=== PATIENT | female | born 1980 | race Caucasian/White ===

== ENCOUNTER 2017-08-21 13:14 | Emergency (ER) | payer BC ==
[2017-08-21 14:55] VITALS: BP 120/93
--- NOTE | 2017-08-21 15:16 | UC ---
Respiratory Complaint HPI - HPI Summary HPI Summary: Patient presents to the with CC of fever and cough x 2 days. She has not taken anything for relief stating she does not like to take medications. She is currently . 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 She denies N/V/C/D. Denies travel. Cough is with a discoloration of production , but denies chest pain. Denies SOB or other symptoms. Body aches+. She has not had a flu shot this year. - History of Current Complaint Hx Obtained From: Patient Hx Last Menstrual Period: 07/21/17 ?: No Onset/Duration: Sudden Onset Timing: Constant Severity Initially: Moderate Severity Currently: Moderate Pain Intensity: 4 Pain Scale Used: 0-10 Numeric Character: Cough: Productive Aggravating Factors: Deep Breaths, Recumbent Position Alleviating Factors: Upright Position Associated Signs And Symptoms: Positive: URI, Nasal Congestion. Negative: Dyspnea, Calf Pain, Calf Swelling - Risk Factors Pulmonary Embolism Risk Factors: Negative Cardiac Risk Factors: Negative Pseudomonas Risk Factors: Negative Tuberculosis Risk Factors: Negative <Rocío Roque - Last Filed: 08/21/17 15:34> <Wendy Jain - Last Filed: 08/22/17 20:23> - History of Current Complaint Chief Complaint: UCGeneralIllness Stated Complaint: FEVER,COUGH Time Seen by Provider: 08/21/17 14:52 - Allergies/Home Medications Allergies/Adverse Reactions: Allergies Allergy/AdvReac Type Severity Reaction Status Date / Time Penicillins Allergy Intermediate Hives Verified 08/21/17 14:56 PMH/Surg Hx/FS Hx/Imm Hx Previously Healthy: Yes - Surgical History Surgical History: Yes Surgery Procedure, Year, and Place: TONSILLECTOMY. C-SECT 2007,2009, 2014 - Family History Known Family History: Positive: Hypertension - Social History Occupation: Employed Full-time Lives: With Family Alcohol Use: None Substance Use Type: None Smoking Status (MU): Never Smoked Tobacco <Rocío Roque - Last Filed: 08/21/17 15:34> Review of Systems Constitutional: Fever, Fatigue Skin: Negative ENT: Sinus Congestion, Sinus Pain/Tenderness Respiratory: Cough Cardiovascular: Negative Motor: Negative Neurovascular: Negative Musculoskeletal: Myalgia Neurological: Headache Psychological: Negative Is Patient Immunocompromised?: No All Other Systems Reviewed And Are Negative: Yes <Mya,Rocío Millan - Last Filed: 08/21/17 15:34> Physical Exam Triage Information Reviewed: Yes Appearance: Well-Appearing, Well-Nourished Vital Signs: Initial Vital Signs Temp 101.3 F 08/21/17 14:49 Pulse 122 08/21/17 14:49 Resp 16 08/21/17 14:49 BP 120/93 08/21/17 14:49 Pulse Ox 97 08/21/17 14:49 Vital Signs Reviewed: Yes Eye Exam: Normal Eyes: Positive: Conjunctiva Clear Neck exam: Normal Neck: Positive: Supple, No Lymphadenopathy Respiratory Exam: Normal Respiratory: Positive: Chest non-tender Cardiovascular Exam: Normal Cardiovascular: Positive: RRR Musculoskeletal Exam: Normal Musculoskeletal: Positive: Strength Intact Psychological: Positive: Normal Response To Family, Age Appropriate Behavior Skin Exam: Normal <Mya,Rocío B - Last Filed: 08/21/17 15:34> Vital Signs: Initial Vital Signs Temp 101.3 F 08/21/17 14:49 Pulse 122 08/21/17 14:49 Resp 16 08/21/17 14:49 BP 120/93 08/21/17 14:49 Pulse Ox 97 08/21/17 14:49 <Wendy Jain - Last Filed: 08/22/17 20:23> Diagnostic Evaluation - Laboratory O2 Sat by Pulse Oximetry: 97 <Mya,Rocío B - Last Filed: 08/21/17 15:34> Respiratory Course/Dx - Course Course Of Treatment: Patient evaluated for cough and fever. Fever highest at 102 yesterday. She has not taken anything for relief. She denies other symptoms. She is given mucinex for relief of cough. Lungs CTA. TM's without erythema. Pharynx normal without exudate. Currently at 101.3 and tachy, but continues to refuse tylenol or ibuprofen. She is drinking enough fluids. She appears well and is not diaphoretic. She is given 2 days off work with supportive care. She is encouraged to return for any worsening symptoms. This may be a viral syndrome. Since onset x 3 days - deferred flu at this time since treatment is not encouraged after 48 hours. She understands plan and will return if symptoms worsen. - Differential Dx/Diagnosis Differential Diagnosis/HQI/PQRI: Bronchitis, Sinusitis, Other - influenza, febrile illness, viral illness Provider Diagnoses: Viral syndrome <Rocío Roque - Last Filed: 08/21/17 15:34> Discharge <Rocío Roque - Last Filed: 08/21/17 15:34> <Wendy Jain - Last Filed: 08/22/17 20:23> - Discharge Plan Condition: Stable Disposition: HOME Prescriptions: Guaifenesin [Mucinex Maximum Strength] 1,200 mg PO DAILY #12 tab Patient Education Materials: Viral Syndrome (ED) Forms: *Work Release Referrals: No Primary Care Phys,NOPCP [Primary Care Provider] - Additional Instructions: Follow up with your PCP Take mucinex once daily Return to UC if symptoms persist Humidifier in the home will help. Tylenol for discomfort. Take all medications as directed. Symptoms should resolve in 1-3 weeks. If symptoms become worse, please come back to UC or go to the ED. Honey and lemon hot tea Rest plenty of fluids. Attestation Statement User Type: Provider - I was available for consult. This patient was seen by the [facility]. The patient was not presented to, seen by, or examined by me. -Salbador <Wendy Jain - Last Filed: 08/22/17 20:23>
== END 2017-08-21 15:18 | disposition home or self-care (01) ==
LOC: UCCORT 13:14
DX: B34.9 Viral infection, unspecified (principal)
CPT/HCPCS: 99212; G0463

== ENCOUNTER 2017-10-15 08:20 | Emergency (ER) | payer BC ==
[2017-10-15 08:34] VITALS: BP 137/85
[2017-10-15] MEDS ORDERED: Ibuprofen TAB* 600 MG PO ONE (08:57)
--- NOTE | 2017-10-15 08:59 | UC ---
Truncal Trauma HPI - HPI Summary HPI Summary: 36 YO FEMALE WAS CHOKING ON A BAGEL THIS AM COUGHED AND FELT A POP RIGHT SIDE OF CHEST NO SOB HURTS TO MOVE/BEND/TAKE A DEEP BREATH - History Of Current Complaint Chief Complaint: UCChestPain Stated Complaint: RIGHT SIDE PAIN Time Seen by Provider: 10/15/17 08:36 Hx Obtained From: Patient Hx Last Menstrual Period: 10/13/17 Onset/Duration: Sudden Onset, Lasting Hours Onset Of Pain: Immediate Severity Initially: Severe Severity Currently: Severe Pain Intensity: 8 Pain Scale Used: 0-10 Numeric Mechanism Of Injury: Other - COUGH Aggravating Factor(s): Movement, Deep Breathing, Cough Alleviating factor(s): Rest, Shallow Breathing Associated Signs And Symptoms: Positive: Chest Pain - Allergies/Home Medications Allergies/Adverse Reactions: Allergies Allergy/AdvReac Type Severity Reaction Status Date / Time Penicillins Allergy Intermediate Hives Verified 10/15/17 08:29 Home Medications: Home Medications NK [No Home Medications Reported] 10/15/17 [History Confirmed 10/15/17] PMH/Surg Hx/FS Hx/Imm Hx Previously Healthy: Yes - Surgical History Surgical History: Yes Surgery Procedure, Year, and Place: C-Sections, 2007 2009 2014, [place]; Tonsillectomy, ~1991, [place] - Family History Known Family History: Positive: Hypertension - Social History Alcohol Use: None Substance Use Type: None Smoking Status (MU): Never Smoked Tobacco - Immunization History Most Recent Influenza Vaccination: Not the Season Review of Systems Constitutional: Negative Skin: Negative Eyes: Negative ENT: Negative Respiratory: Negative Cardiovascular: Chest Pain - RIGHT LAT Gastrointestinal: Negative Genitourinary: Negative Motor: Negative Neurovascular: Negative Musculoskeletal: Negative Neurological: Negative Psychological: Negative Is Patient Immunocompromised?: No All Other Systems Reviewed And Are Negative: Yes Physical Exam Triage Information Reviewed: Yes Appearance: Well-Appearing, No Pain Distress, Well-Nourished Vital Signs: Initial Vital Signs Temp 98.4 F 10/15/17 08:27 Pulse 100 10/15/17 08:27 Resp 18 10/15/17 08:27 BP 137/85 10/15/17 08:27 Pulse Ox 99 10/15/17 08:27 Vital Signs Reviewed: Yes Eyes: Positive: Conjunctiva Clear ENT: Positive: Hearing grossly normal, Uvula midline. Negative: Nasal congestion, Nasal drainage, Muffled voice, Dental tenderness, Sinus tenderness Neck: Positive: Supple, Nontender, No Lymphadenopathy Respiratory: Positive: Lungs clear, Normal breath sounds, No respiratory distress. Negative: Chest non-tender Cardiovascular: Positive: No Murmur, Pulses Normal Musculoskeletal: Positive: ROM Intact, No Edema Neurological: Positive: Alert Psychological Exam: Normal Skin Exam: Normal Diagnostics - Radiology No standard instances Xray Interpretation: No Acute Changes - No fracture of the RIBS is identified Radiology Interpretation Completed By: Radiologist Truncal Trauma Course/Dx - Differential Dx/Diagnosis Provider Diagnoses: ACUTE CHEST WALL PAIN Discharge - Discharge Plan Condition: Stable Disposition: HOME Patient Education Materials: Chest Wall Pain (ED) Forms: *Work Release Referrals: [facility] [place] PHYSICIAN REFERRAL [Outside] - If Needed Additional Instructions: ADVIL OR ALEVE RECHECK IN 2 WEEKS IF NOT MARKEDLY IMPROVED Images Front/Back of Body, Lg ([place]): 1 - MARKEDLY TENDER/PAIN WITH CHEST WALL COMPRESSION
--- NOTE | 2017-10-15 09:15 | RAD ---
Indication: Rib injury. 3 views of the right ribs demonstrates no definite fracture. A dual energy PA view of the chest demonstrates no pneumothorax. Lungs are clear. IMPRESSION: No fracture of the RIBS is identified.
== END 2017-10-15 09:36 | disposition home or self-care (01) ==
LOC: UCCORT 08:20
DX: R07.89 Other chest pain (principal); Z88.0 Allergy status to penicillin
CPT/HCPCS: 99212; A9270-GY; G0463